=== PATIENT | female | born 1980 | race Caucasian/White ===

== ENCOUNTER → 2016-04-28 | Outpatient (CLI) | payer BC ==
--- NOTE | 2016-04-28 09:31 | US ---
Ultrasound Obstetrics First Trimester Clinical Indication: Size and dates. Unknown last menstrual period. G3, P1, A1 with a beta-hCG of 36, 416. Comparison: April 09, 2016. Findings: There is a living IUP at 8 weeks 0 days by crown-rump length. The crown-rump length is 15. 5 mm. Heart rate is 146 beats per minute. There is a 3.7 mm yolk sac. The right ovary measures 2.5 x 2.0 x 1.3 cm with normal color Doppler flow and a resistive index of 0 .36. The left ovary measures 2.5 x 1.8 x 2.1 cm with normal color Doppler flow and a normal resistive inde x of 0.29. There is a corpus luteum cyst on the left. Impression: Living IUP at 8 weeks 0 days. Consider full assessment of anatomy at 20 weeks.
== END ==
LOC: FIMAGING 07:24
PROVIDERS: ATTEND Advanced Practice Midwife
DX: Z34.81 Encounter for supervision of other normal pregnancy, first trimester (principal); Z3A.08 8 weeks gestation of pregnancy

== ENCOUNTER 2016-05-22 06:12 | Day surgery (SDC) | payer BC ==
[2016-05-22] MEDS ORDERED: CHLORHEXIDINE GLUC HIBICLENS 118 ML BTL TP ONE (06:30)
[2016-05-22] MEDS ORDERED: LIDOCAINE 1% 30 ML SDV MISC ONE (06:30)
[2016-05-22] MEDS ORDERED: MIDAZOLAM 2 MG/2 ML VIAL IVP ONE (06:30)
[2016-05-22] MEDS ORDERED: PROPOFOL 200 MG/20 ML VIAL ONE ×2 (07:42)
[2016-05-22] MEDS ORDERED: fentaNYL 100 MCG/2 ML INJ ONE (07:42)
[2016-05-22] MEDS ORDERED: DEXAMETHASONE 4 MG/ML VIAL ONE (07:45)
[2016-05-22] MEDS ORDERED: KETOROLAC 30 MG/1 ML SDV ONE (07:45)
[2016-05-22] MEDS ORDERED: METOCLOPRAMIDE 10 MG/2 ML VIAL ONE (07:45)
[2016-05-22] MEDS ORDERED: ONDANSETRON 4 MG/2 ML VIAL ONE (07:45)
--- NOTE | 2016-05-22 08:43 | SUROPNOTE ---
[facility] Operative Report - Surgery Dive Supervisor Procedure Note: Procedure: Suction D&C under ultrasound guidance Preoperative diagnosis: trisomy 18 at 11w3d Postoperative diagnosis: Same Anesthesia: MAC Anesthesiologist: Haritha Surgeon: Sam EBL: Minimal Fluids: 200 ml Pathology: POC Findings: 11 week anteverted uterus. Products of conception consistent with gestational age. Outcome: Stable condition Disposition: PACU Indication: Patient is a 35 yo at 11w3d with a trisomy 18 diagnosed on NIPT and confirmed on [facility] genetic testing. She desires to proceed with termination via suction D&C. She is Rh+. She took preoperative doxycycline the night prior to the procedure and cervical preparation was completed with misoprostol 400 mcg per vagina. Procedure: Patient was taken to the operating room and MAC anesthesia was induced. She had voided prior to the procedure. She was prepped and draped in the normal sterile fashion in dorsal lithotomy with katarina stirrups. A surgical time out was performed. The speculum was placed and the anterior lip of the cervix was grasped with a single toothed tenaculum. A paracervical block was performed with 17 ml 1% plain lidocaine. The cervix was easily dilated using hegar dilators to 11.5mm. The 11m suction curette was advanced into the uterus under direct ultrasound guidance and the uterus was emptied. An additional pass was made with the 8 mm curette and a gritty texture was noted throughout the uterus. All instruments were removed and hemostasis was noted. The patient was brought to the recovery room in good condition. Post-operative instructions and precautions were relayed to the patient and her , and they will follow- up in the office in 2 weeks for a post-operative visit. Shial Vargas MD p [phone]
[2016-05-22] MEDS ORDERED: HYDROCODONE/APAP 5/325 TAB PO PRN (08:44)
== END 2016-05-22 09:45 | disposition home or self-care (01) ==
LOC: FOBOP 06:12
PROVIDERS: ATTEND Obstetrics & Gynecology
PROC: 10A07ZZ Abortion of Products of Conception, Via Natural or Artificial Opening (ICD-10-PCS; principal; 2016-05-22)
DX: O35.1XX0 Maternal care for (suspected) chromosomal abnormality in fetus, not applicable or unspecified (principal); Z3A.11 11 weeks gestation of pregnancy
CPT/HCPCS: J1100; J1885; J2250; J2405; J2704; J2765; J3010